=== PATIENT | female | born 1960 | race Caucasian/White ===

== ENCOUNTER 2025-03-28 09:05 | Outpatient (CLI) | payer BC | END 2025-03-28 09:06 | disposition home or self-care (01) | LOC: BICMAMMO 09:05 | PROVIDERS: ATTEND Nurse Practitioner Family | DX: Z12.31 Encounter for screening mammogram for malignant neoplasm of breast (principal); Z78.0 Asymptomatic menopausal state; M85.851 Other specified disorders of bone density and structure, right thigh; M85.852 Other specified disorders of bone density and structure, left thigh | CPT/HCPCS: 77063; 77067; 77080 ==